=== PATIENT | female | born 1995 | race Caucasian/White ===

== ENCOUNTER 2017-09-15 23:29 | Emergency (ER) | payer SELFPAY ==
[~2017-09-15] VITALS: Ht 154.9 cm; Wt 68.0 kg
[2017-09-15 23:38] VITALS: BP 139/84
[2017-09-15 23:45] VITALS: BP 139/84
--- NOTE | 2017-09-15 23:45 | NUR ---
PATIENT PRESENTS TO ED WITH RIGHT FOOT PAIN, EDEMA, AND REDNESS X1 DAY. PT STATES SHE WAS HELPING HER PUSH A CAR YESTERDAY WHEN SHE FEELT SOMETHING ENTER HER RIGHT FOOT. PT STATES SMALL METAL OBJECT REMOVED BUT NO BLOOD DRAWN FROM PUNTCTURE SITE ON RIGHT FOOT. C/O 10/10 PAIN. PT LIMPING AMBULATION D/T PAIN. DENIES N/V/D; SKIN IS PINK/WARM/DRY; AAOX4; LUNGS CLEAR BL; HR EVEN AND REGULAR; PT DENIES ANY FEVER, CP, SOB, OR COUGH AT THIS TIME; VSS; PATIENT POSITIONED FOR COMFORT; HOB ELEVATED; BEDRAILS UP X2; BED DOWN. ER MD MADE AWARE OF PT STATUS. CONTINUE TO MONITOR.
--- NOTE | 2017-09-15 23:45 | NUR ---
PATIENT TO ER BED 12
[2017-09-15] MEDS ORDERED: CLINDAMYCIN 150 MG CAP PO ONE (23:55)
[2017-09-15] MEDS ORDERED: IBUPROFEN 800 MG TAB PO ONE (23:55)
--- NOTE | 2017-09-16 00:13 | NUR ---
XRAY AT BEDSIDE
--- NOTE | 2017-09-16 00:32 | NUR ---
DPatient discharged with v/s stable. Written and verbal after care instructions given and explained. Patient alert, oriented and verbalized understanding of instructions. Ambulatory with steady gait. All questions addressed prior to discharge. ID band removed. Patient advised to follow up with PMD. Rx of CLINDAMYCIN AND MOTRIN given. Patient educated on indication of medication including possible reaction and side effects. Opportunity to ask questions provided and answered.
== END 2017-09-16 00:32 | disposition home or self-care (01) ==
LOC: MED 23:29
DX: L03.115 Cellulitis of right lower limb (principal)
CPT/HCPCS: 73630; 81002; 81025; 90471; 90715; 99284; Q0092